=== PATIENT | male | born 1935 | race African-American/Black ===

== ENCOUNTER 2018-01-01 09:02 | Emergency (ER) | payer MEDICARE ==
[~2018-01-01] VITALS: Ht 172.7 cm; Wt 69.0 kg
[2018-01-01 15:20] VITALS: BP 141/78
== END 2018-01-01 15:38 | disposition home or self-care (01) ==
LOC: ER 09:02
DX: S13.4XXA Sprain of ligaments of cervical spine, initial encounter (principal); Y93.89 Activity, other specified; X58.XXXA Exposure to other specified factors, initial encounter; Y92.89 Other specified places as the place of occurrence of the external cause; I10 Essential (primary) hypertension
CPT/HCPCS: 70450; 72125; 99284